=== PATIENT | male | born 1995 | race Caucasian/White ===

== ENCOUNTER 2023-05-09 18:28 | Emergency (ER) | payer BC ==
[~2023-05-09] VITALS: Ht 170.2 cm; Wt 65.8 kg
[2023-05-09 18:35] VITALS: BP 152/92
== END 2023-05-09 20:45 | disposition home or self-care (01) ==
LOC: ER 18:28
DX: R07.9 Chest pain, unspecified (principal); F17.200 Nicotine dependence, unspecified, uncomplicated; Z20.822 Contact with and (suspected) exposure to COVID-19
CPT/HCPCS: 93005; 93010; 99283-25

== ENCOUNTER 2024-05-26 16:08 | Emergency (ER) | payer OTHER ==
[~2024-05-26] VITALS: Ht 167.6 cm; Wt 63.5 kg
[2024-05-26 16:20] VITALS: BP 144/99
[2024-05-26] MEDS ORDERED: ALBU90OI INH (17:07)
[2024-05-26] MEDS ORDERED: BENZ100A PO (17:07)
[2024-05-26] MEDS ORDERED: PRED20 PO (17:07)
== END 2024-05-26 17:34 | disposition home or self-care (01) ==
LOC: ER 16:08
DX: J40 Bronchitis, not specified as acute or chronic (principal); F17.200 Nicotine dependence, unspecified, uncomplicated
CPT/HCPCS: 71046; 99283-25